=== PATIENT | female | born 1995 | race Asian ===

== ENCOUNTER 2017-05-04 16:15 | Emergency (ER) | payer OTHER ==
[2017-05-04 16:27] VITALS: BP 112/64
--- NOTE | 2017-05-04 16:47 | XRAY Preliminary Report ---
Exam: XR Chest 2 View PA/LAT IMPRESSION: No acute intrathoracic plain film abnormality. [facility] SITE ID: [id number]
--- NOTE | 2017-05-04 16:50 | XRAY Report ---
EXAM: CHEST RADIOGRAPHY EXAM DATE: 05/04/2017 04:40 PM. CLINICAL HISTORY: Productive cough x 2 weeks. COMPARISON: None. TECHNIQUE: 2 views. FINDINGS: Lungs/Pleura: No focal opacities evident. No pleural effusion. No pneumothorax. Normal volumes. Mediastinum: Heart and mediastinal contours are unremarkable. Other: None. IMPRESSION: No acute intrathoracic plain film abnormality. [facility] Referring Provider Line: [phone] SITE ID: [id number]
[2017-05-04] MEDS ORDERED: DEXAMETHASONE 10 MG/ML VIAL PO STA (17:09)
--- NOTE | 2017-05-04 17:10 | ED Physician Documentation ---
History of Present Illness - Stated complaint Stated Complaint: COUGH/DIFFICULT BREATHING - Chief complaint Chief Complaint: Resp - History obtained from History obtained from: Patient - History of Present Illness Timing: How many weeks ago (2) Pain level max: 0 Pain level now: 0 - Additonal information Additional information: Patient is a 22-year-old female who has been coughing for the past 2 weeks. States had intermittent subjective fevers the first 2-3 days, this has since resolved. Brings up a small amount of sputum occasionally. Does not smoke. Is concerned she may have pneumonia. No recent travel. No recent antibiotics. No his history of lung disease. States that occasionally she feels like it is hard to breathe when she lies down at night and starts to cough. Review of Systems Ten Systems: 10 systems reviewed and negative Constitutional: denies: Fever, Chills Nose: reports: Rhinorrhea / runny nose, Congestion Cardiac: denies: Chest pain / pressure Respiratory: reports: Cough, Wheezing GI: denies: Abdominal Pain, Nausea, Vomiting, Diarrhea Skin: denies: Rash Musculoskeletal: denies: Neck pain, Back pain Neurologic: denies: Headache PD PAST MEDICAL HISTORY - Past Medical History Past Medical History: No - Past Surgical History Past Surgical History: No - Present Medications Home Medications: Ambulatory Orders Medication Instructions Recorded Confirmed Benzonatate [Tessalon Perle] 100 - 200 mg PO TID PRN #30 capsule 05/04/17 Cetirizine HCl/Pseudoephedrine 1 each PO BID PRN #30 tab.er.12h 05/04/17 [Zyrtec-D Tablet] - Allergies Allergies/Adverse Reactions: Allergies Allergy/AdvReac Type Severity Reaction Status Date / Time No Known Drug Allergies Allergy Verified 05/04/17 16:26 - Social History Does the pt smoke?: No Smoking Status: Never smoker Does the pt drink ETOH?: No Does the pt have substance abuse?: No PD ED PE NORMAL - Vitals Vital signs reviewed: Yes - General General: Alert and oriented X 3, No acute distress - HEENT HEENT: Ears normal, Moist mucous membranes, Pharynx benign - Neck Neck: Supple, no meningeal sign, No adenopathy - Cardiac Cardiac: RRR, Strong equal pulses - Respiratory Respiratory: No respiratory distress, Clear bilaterally - Abdomen Abdomen: Soft, Non tender - Derm Derm: Warm and dry - Neuro Neuro: Alert and oriented X 3 - Psych Psych: Normal mood, Normal affect Results - Vitals Vitals: Vital Signs - 24 hr 05/04/17 16:23 Temperature 37.0 C Heart Rate 77 Respiratory 16 Rate Blood Pressure 112/64 O2 Saturation 98 Oxygen O2 Source Room air - Rads (name of study) cxr Radiology: Prelim report reviewed, EMP read contemporaneously, See rad report ( normal) PD MEDICAL DECISION MAKING - ED course Complexity details: reviewed results, re-evaluated patient, considered differential, d/w patient ED course: Patient is a 22-year-old female who appears to have a viral upper respiratory infection. She is well-appearing, nontoxic. Afebrile. No hypoxia. No pneumonia on chest x-ray. We will continue supportive care and follow-up with her doctor. Patient counseled regarding signs and symptoms for which I believe and urgent re-evaluation would be necessary. Patient with good understanding of and agreement to plan and is comfortable going home at this time This document was made in part using voice recognition software. While efforts are made to proofread this document, sound alike and grammatical errors may occur. Departure - Departure Disposition: 01 Home, Self Care Clinical Impression: Upper respiratory tract infection Qualifiers: URI type: unspecified viral URI Qualified Code(s): J06.9 - Acute upper respiratory infection, unspecified Condition: Good Instructions: ED URI Viral Follow-Up: your,doctor in 1 week [Other] Prescriptions: Benzonatate [Tessalon Perle] 100 - 200 mg PO TID PRN #30 capsule PRN Reason: Cough Cetirizine HCl/Pseudoephedrine [Zyrtec-D Tablet] 1 each PO BID PRN #30 tab.er.12h PRN Reason: Nasal Congestion Comments: Return if you worsen or develop fevers. This should improve over the next week or 2. Drink plenty of fluids at home. Discharge Date/Time: 05/04/17 17:21
[2017-05-04] MEDS ORDERED: DEXAMETHASONE 10 MG/ML VIAL ONE (17:16)
== END 2017-05-04 17:21 | disposition home or self-care (01) ==
LOC: ED 16:15
DX: J06.9 Acute upper respiratory infection, unspecified (principal)
CPT/HCPCS: 71020; 99283

== ENCOUNTER 2017-08-26 14:12 | Emergency (ER) | payer OTHER ==
[2017-08-26] MEDS ORDERED: AMOX/CLAV 875 MG/125 MG TABLET PO STA (16:46)
--- NOTE | 2017-08-26 16:48 | ED Physician Documentation ---
History of Present Illness - Stated complaint Stated Complaint: R HAND LAC - Chief complaint Chief Complaint: Laceration - History obtained from History obtained from: Patient - History of Present Illness Timing: Today, How many hours ago (2) Pain level max: 8 Pain level now: 6 Improved by: rest Worsened by: movement - Additonal information Additional information: Patient is a 22-year-old female presents to the emergency department after her 2 dogs got in a fight and she broke them up, 1 of them bit her in the right hand. Tetanus is up-to-date. Review of Systems Constitutional: denies: Fever, Chills GI: denies: Nausea, Vomiting, Diarrhea Skin: denies: Rash Musculoskeletal: denies: Neck pain, Back pain Neurologic: denies: Headache PD PAST MEDICAL HISTORY - Past Medical History Past Medical History: No - Past Surgical History Past Surgical History: No - Present Medications Home Medications: Ambulatory Orders Medication Instructions Recorded Confirmed Benzonatate [Tessalon Perle] 100 - 200 mg PO TID PRN #30 capsule 05/04/17 Cetirizine HCl/Pseudoephedrine 1 each PO BID PRN #30 tab.er.12h 05/04/17 [Zyrtec-D Tablet] Amox/Clav 875/125 [Augmentin] 1 each PO Q12H #20 tablet 08/26/17 Ibuprofen [Motrin] 800 mg PO Q8H PRN #30 tablet 08/26/17 - Allergies Allergies/Adverse Reactions: Allergies Allergy/AdvReac Type Severity Reaction Status Date / Time No Known Drug Allergies Allergy Verified 05/04/17 16:26 - Social History Does the pt smoke?: No Smoking Status: Never smoker Does the pt drink ETOH?: No Does the pt have substance abuse?: No - Immunizations Immunizations are current?: Yes Immunizations: TDAP current <10years PD ED PE NORMAL - Vitals Vital signs reviewed: Yes - General General: Alert and oriented X 3, No acute distress - HEENT HEENT: Moist mucous membranes - Neck Neck: Supple, no meningeal sign - Cardiac Cardiac: RRR - Respiratory Respiratory: No respiratory distress, Clear bilaterally - Derm Derm: Warm and dry - Extremities Extremities: Other (R hand - abrasions and puncture wounds to the dorsum of the hand and pain. FROM in all digits, but pain and swelling along the dorsum of the hand 2-3rd digits.) - Neuro Neuro: Alert and oriented X 3 Results - Vitals Vitals: Vital Signs - 24 hr 08/26/17 08/26/17 14:21 17:50 Temperature 36.5 C Heart Rate 88 77 Respiratory 18 14 Rate Blood Pressure 114/69 125/78 O2 Saturation 98 100 Oxygen O2 Source Room air - Rads (name of study) R hand xray Radiology: Prelim report reviewed, EMP read contemporaneously, See rad report ( normal) PD MEDICAL DECISION MAKING - ED course Complexity details: reviewed results, re-evaluated patient, considered differential, d/w patient ED course: Patient is a 22-year-old female who presents to the emergency department with a right hand injury after a dog bite. Wounds are not suturable. Cleansed and bandaged in the emergency department. Tdap given. Placed in a fiberglass splint for comfort. Negative x-rays. Warnings of infection and instructions on wound care given at bedside. Also counseled on how to minimize scarring. Patient counseled regarding signs and symptoms for which I believe and urgent re -evaluation would be necessary. Patient with good understanding of and agreement to plan and is comfortable going home at this time This document was made in part using voice recognition software. While efforts are made to proofread this document, sound alike and grammatical errors may occur. Departure - Departure Disposition: 01 Home, Self Care Clinical Impression: Dog bite Qualifiers: Encounter type: initial encounter Qualified Code(s): W54.0XXA - Bitten by dog, initial encounter Condition: Good Instructions: ED Bite Dog Follow-Up: your,doctor in 4 days for wound check [Other] Prescriptions: Amox/Clav 875/125 [Augmentin] 1 each PO Q12H #20 tablet Ibuprofen [Motrin] 800 mg PO Q8H PRN #30 tablet PRN Reason: PAIN &/OR FEVER Comments: Take all antibiotics until gone. Return if you worsen including redness, swelling or drainage from the wound. Discharge Date/Time: 08/26/17 18:00
[2017-08-26] MEDS: HYDROcod/ACETAM 5/325 MG TABLET PO STA ×2 (17:02→17:12)
--- NOTE | 2017-08-26 17:34 | XRAY Report ---
EXAM: RIGHT HAND RADIOGRAPHY EXAM DATE: 08/26/2017 05:18 PM. CLINICAL HISTORY: R hand dog bite. COMPARISON: None. TECHNIQUE: 3 views. FINDINGS: Bones: No fracture or focal bony lesion. Joints: No evidence of dislocation. Soft Tissues: There is mild mid hand soft tissue swelling and a small amount of subcutaneous air. No evidence of radiopaque foreign body. IMPRESSION: No evidence of fracture or radiopaque foreign body. [facility] Referring Provider Line: [phone] SITE ID: [id number]
[2017-08-26] MEDS ORDERED: BACITRACIN OINT TOP ONE (17:42)
[2017-08-26] MEDS ORDERED: TETANUS/DIPHTHERIA/PERTUSSIS 0.5 ML SYRINGE IM ONE (17:48)
[2017-08-26 17:50] VITALS: BP 125/78
== END 2017-08-26 18:00 | disposition home or self-care (01) ==
LOC: ED 14:12
DX: S61.431A Puncture wound without foreign body of right hand, initial encounter (principal); W54.0XXA Bitten by dog, initial encounter; Y92.019 Unspecified place in single-family (private) house as the place of occurrence of the external cause; Z23 Encounter for immunization
CPT/HCPCS: 73130; 90471; 90715; 99283; A9270

== ENCOUNTER 2018-03-25 08:50 | Emergency (ER) | payer OTHER ==
[2018-03-25 09:02] VITALS: BP 108/76
--- NOTE | 2018-03-25 09:07 | ED Physician Documentation ---
PD HPI SKIN - Stated complaint Stated Complaint: ALLERGIC REACTION - Chief complaint Chief Complaint: Wound - History obtained from History obtained from: Patient - History of Present Illness Timing - onset: Last night Timing - details: Gradual onset, Still present Location: Face, Neck, Back Quality / character: Itchy, Burning, Discolored (red) Improved by: Benadryl (last night) Associated symptoms: No: Fever, Dyspnea, N/V/D Contributing factors: No: Exposed to medication, Exposed to food, Exposed to soap / lotion, Insect bite /sting, Recent illness Similar symptoms before: Has not had sx before Recently seen: Not recently seen Review of Systems Constitutional: denies: Fever, Chills, Myalgias Nose: denies: Rhinorrhea / runny nose, Congestion Throat: denies: Sore throat Cardiac: denies: Chest pain / pressure, Palpitations Respiratory: denies: Dyspnea, Cough GI: denies: Nausea, Vomiting, Diarrhea : denies: Dysuria, Frequency Skin: reports: Rash Neurologic: denies: Generalized weakness, Altered mental status, Headache PD PAST MEDICAL HISTORY - Past Medical History Past Medical History: No - Past Surgical History Past Surgical History: No - Present Medications Home Medications: Ambulatory Orders Medication Instructions Recorded Confirmed Cetirizine [ZyrTEC] 10 mg PO DAILY #15 tablet 03/25/18 Dexamethasone [Decadron] 4 mg PO DAILY #5 tablet 03/25/18 diphenhydrAMINE [Benadryl] 03/25/18 - Allergies Allergies/Adverse Reactions: Allergies Allergy/AdvReac Type Severity Reaction Status Date / Time No Known Drug Allergies Allergy Verified 03/25/18 09:01 - Social History Does the pt smoke?: No Smoking Status: Never smoker Does the pt drink ETOH?: No Does the pt have substance abuse?: No - Immunizations Immunizations are current?: Yes Immunizations: TDAP current <10years - POLST Patient has POLST: No PD ED PE NORMAL - Vitals Vital signs reviewed: Yes - General General: Alert and oriented X 3, No acute distress (but is uncomfortable with the rash burning. ), Well developed/nourished - HEENT HEENT: Moist mucous membranes, Pharynx benign (no swelling of tongue nor throat. Normal voice and respirations. ) - Neck Neck: Supple, no meningeal sign, No adenopathy - Cardiac Cardiac: RRR, No murmur - Respiratory Respiratory: Clear bilaterally - Abdomen Abdomen: Soft, Non tender - Derm Derm: Other (distinct red, raised rash on face and neck, mild on shoulders and back and arms. None on hands. Nonvesicular, raised red c/w hives.) - Extremities Extremities: Normal ROM s pain - Neuro Neuro: Alert and oriented X 3, No motor deficit, Normal speech Results - Vitals Vitals: Oxygen O2 Source Room air PD MEDICAL DECISION MAKING - ED course Complexity details: considered differential (rash very much face and neck but some on back and arms. Consider sun sensitization versus contact dermatitis, but not a reason for either, so presume general allergic reaction. No new meds/ foods/lotions/etc. She is on depo shot not oral OCPs. No NSAID use. ), d/w patient - Sepsis Event Vital Signs: Oxygen O2 Source Room air Departure - Departure Disposition: 01 Home, Self Care Clinical Impression: Urticaria, acute Condition: Stable Record reviewed to determine appropriate education?: Yes Instructions: ED Allergic Reaction General [facility] Prescriptions: Cetirizine [ZyrTEC] 10 mg PO DAILY #15 tablet Dexamethasone [Decadron] 4 mg PO DAILY #5 tablet Comments: Use Benadryl 1-2 tablets every 6-8 hours as needed for itchiness and hives. Take a daily long-acting antihistamine as well, cetirizine daily for 1-2 weeks. Decadron steroid daily for the next 5 days. Recheck if not improving over the next couple of days. Avoid driving and has it does work if using the Benadryl while you feel sleepy. Typically this type of reaction will go away over a couple of days and not return. If you have recurrent episodes or its persistent and not improving, then there may be a need for allergy testing or such. Forms: Activity restrictions Discharge Date/Time: 03/25/18 09:52
[2018-03-25] MEDS ORDERED: DEXAMETHASONE 10 MG/ML VIAL PO STA (09:32)
[2018-03-25] MEDS ORDERED: FAMOTIDINE 20 MG TABLET PO STA (09:32)
[2018-03-25] MEDS ORDERED: CETIRIZINE 10 MG TABLET PO STA (09:32)
[2018-03-25] MEDS ORDERED: CHERRY SYRUP 10 ML UDC PO ONE (09:45)
== END 2018-03-25 09:52 | disposition home or self-care (01) ==
LOC: ED 08:50
DX: L50.9 Urticaria, unspecified (principal)
CPT/HCPCS: 99283; A9270

== ENCOUNTER 2018-05-27 09:57 | Emergency (ER) | payer OTHER ==
--- NOTE | 2018-05-27 11:22 | XRAY Report ---
Reason: Trauma Procedure Date: 05/27/2018 Accession Number: [id number] / [id number] Procedure: XR - Tib/Fib LT CPT Code: FULL RESULT: EXAM: LEFT TIBIA/FIBULA RADIOGRAPHY EXAM DATE: 05/27/2018 10:57 AM. CLINICAL HISTORY: Trauma. Pain lateral tibia/fibula. COMPARISON: None. TECHNIQUE: 2 views. FINDINGS: Bones: Normal. No fracture or bone lesion. Joints: The visualized knee and ankle joints are normal. No effusions. Soft Tissues: Normal. No soft tissue swelling. IMPRESSION: Normal tibia/fibula radiography. [facility]
[2018-05-27] MEDS ORDERED: IBUPROFEN 600 MG TABLET PO STA (12:14)
[2018-05-27] MEDS ORDERED: ACETAMINOPHEN 325 MG TABLET PO STA (12:14)
--- NOTE | 2018-05-27 12:21 | ED Physician Documentation ---
PD HPI LOWER EXT INJURY - Stated complaint Stated Complaint: LT LEG PX - Chief complaint Chief Complaint: General - History obtained from History obtained from: Patient - History of Present Illness PD HPI LOW EXT INJURY LOCATION: Left, Lower leg (lateral aspect) Type of injury: Blunt / blow (caught in car door that was closing.) Where injury occurred: Home Timing - onset: Last night Timing - details: Abrupt onset, Still present Improved by: Rest Worsened by: Moving, Palpating Associated symptoms: Swelling, Discolored (bruising color laterally). No: Weakness, Numbness Similar symptoms before: Has not had sx before Recently seen: Not recently seen Review of Systems GI: denies: Nausea, Vomiting Skin: reports: Abrasion (s). denies: Laceration (s) Musculoskeletal: denies: Neck pain, Back pain Neurologic: denies: Focal weakness, Numbness PD PAST MEDICAL HISTORY - Past Medical History Cardiovascular: None Musculoskeletal: None Derm: None - Past Surgical History Past Surgical History: No - Present Medications Home Medications: Ambulatory Orders Medication Instructions Recorded Confirmed Naproxen [Naprosyn] 500 mg PO BID PRN #20 tablet 05/27/18 - Allergies Allergies/Adverse Reactions: Allergies Allergy/AdvReac Type Severity Reaction Status Date / Time No Known Drug Allergies Allergy Verified 05/27/18 10:44 - Social History Does the pt smoke?: No Smoking Status: Never smoker Does the pt drink ETOH?: No Does the pt have substance abuse?: No - Immunizations Immunizations are current?: Yes Immunizations: TDAP current <10years - POLST Patient has POLST: No PD ED PE NORMAL - Vitals Vital signs reviewed: Yes - General General: Alert and oriented X 3, No acute distress, Well developed/nourished - Extremities Extremities: No edema, Other (left lateral lower leg with bruising and tenderness, some swelling. Knee ligaments firm and intact in stress testing. no knee effusion. Tenderness and bruising mainly mid lateral fibular area down to upper ankle.) Results - Vitals Vitals: Oxygen O2 Source Room air - Rads (name of study) left lower leg (tib/fib) Radiology: Prelim report reviewed, EMP read contemporaneously PD MEDICAL DECISION MAKING - ED course Complexity details: reviewed results, re-evaluated patient (painful with walking and has some ligament area abrasion on lateral malleolus. ), considered differential (not twisting injury to ligaments lower likelihood. ) Departure - Departure Disposition: 01 Home, Self Care Clinical Impression: Contusion, lower leg Qualifiers: Encounter type: initial encounter Laterality: left Qualified Code(s): S80.12XA - Contusion of left lower leg, initial encounter Condition: Stable Record reviewed to determine appropriate education?: Yes Instructions: ED Contusion Lower Ext Follow-Up: [facility] Gloria [Provider Group] Prescriptions: Naproxen [Naprosyn] 500 mg PO BID PRN #20 tablet PRN Reason: Pain Comments: Limited weightbearing and walking over the next few days to reduce swelling and pain. Crutches as needed for partial weightbearing. Addy wrap locally. Naproxen twice daily for the next 7-10 days and add Tylenol if needed. Follow- up with your primary care in the next few days regarding any further limitations of work and activity. This may take a week or 2 to fully improve. Forms: Activity restrictions Discharge Date/Time: 05/27/18 12:50
[2018-05-27 12:50] VITALS: BP 108/58
== END 2018-05-27 12:50 | disposition home or self-care (01) ==
LOC: ED 09:57
DX: S80.12XA Contusion of left lower leg, initial encounter (principal); V48.4XXA Person boarding or alighting a car injured in noncollision transport accident, initial encounter; Y92.009 Unspecified place in unspecified non-institutional (private) residence as the place of occurrence of the external cause
CPT/HCPCS: 73590; 99283; A9270

== ENCOUNTER 2018-10-16 20:22 | Emergency (ER) | payer OTHER ==
[2018-10-16 20:30] VITALS: BP 119/71
[2018-10-16] MEDS ORDERED: BENZONATATE 100 MG CAPSULE PO STA (20:50)
[2018-10-16] MEDS ORDERED: ALBUTEROL NEB 2.5 MG/3 ML INH STA (20:50)
--- NOTE | 2018-10-16 21:06 | ED Physician Documentation ---
PD HPI URI - Stated complaint Stated Complaint: COUGH - Chief complaint Chief Complaint: Resp - History obtained from History obtained from: Patient - History of Present Illness Timing - onset: Yesterday Timing duration: Days (2) Timing details: Gradual onset Pain level max: 0 Pain level now: 0 Associated symptoms: Nasal congestion, Rhinorrhea, Dry cough, Dyspnea (wheezing). No: Fever, Chills Contributing factors: Sick contact, Other (has used inhalers). 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 : None HEENT: None Psych: None Musculoskeletal: None Derm: None - Past Surgical History Past Surgical History: No - Present Medications Home Medications: Ambulatory Orders Medication Instructions Recorded Confirmed Albuterol Sulf [Ventolin Hfa 1 - 2 puffs INH Q4HR PRN #1 inhaler 10/16/18 Inhaler] Benzonatate [Tessalon Perle] 100 - 200 mg PO TID PRN #30 capsule 10/16/18 - Allergies Allergies/Adverse Reactions: Allergies Allergy/AdvReac Type Severity Reaction Status Date / Time No Known Drug Allergies Allergy Verified 10/16/18 20:30 - Social History Does the pt smoke?: No Smoking Status: Never smoker Does the pt drink ETOH?: No Does the pt have substance abuse?: No - Immunizations Immunizations are current?: Yes Immunizations: TDAP current <10years - POLST Patient has POLST: No PD ED PE NORMAL - Vitals Vital signs reviewed: Yes - General General: Alert and oriented X 3, No acute distress - HEENT HEENT: PERRL, Ears normal, Moist mucous membranes, Pharynx benign - Neck Neck: Supple, no meningeal sign - Cardiac Cardiac: RRR - Respiratory Respiratory: No respiratory distress, Other (wheezing B) - Abdomen Abdomen: Soft, Non tender, Non distended - Derm Derm: Warm and dry, No rash - Extremities Extremities: No edema - Neuro Neuro: Alert and oriented X 3 Results - Vitals Vitals: Vital Signs - 24 hr 10/16/18 10/16/18 20:27 21:13 Temperature 37.1 C Heart Rate 87 92 Respiratory 16 18 Rate Blood Pressure 119/71 O2 Saturation 99 Oxygen O2 Source Room air - Labs Labs: Laboratory Tests 10/16/18 21:03 Ur Specific [place] 1.010 Urine HCG, Qual NEGATIVE PD MEDICAL DECISION MAKING - ED course Complexity details: reviewed results, re-evaluated patient, considered differential, d/w patient ED course: 23-year-old female, well-appearing, nontoxic. Feels better after nebulizer treatment. Will continue supportive care and follow-up with her doctor. No evidence of pneumonia, sepsis. Patient counseled regarding signs and symptoms for which I believe and urgent re-evaluation would be necessary. Patient with good understanding of and agreement to plan and is comfortable going home at this time This document was made in part using voice recognition software. While efforts are made to proofread this document, sound alike and grammatical errors may occur. Departure - Departure Disposition: 01 Home, Self Care Clinical Impression: Upper respiratory tract infection Qualifiers: URI type: unspecified URI Qualified Code(s): J06.9 - Acute upper respiratory infection, unspecified Condition: Good Instructions: ED URI Viral W Wheezing Follow-Up: your,doctor in 1week [Other] Prescriptions: Albuterol Sulf [Ventolin Hfa Inhaler] 1 - 2 puffs INH Q4HR PRN #1 inhaler PRN Reason: Shortness Of Air/Wheezing Benzonatate [Tessalon Perle] 100 - 200 mg PO TID PRN #30 capsule PRN Reason: Cough Comments: Use the inhaler as prescribed. This will likely last 7-10 days. Return if you worsen. Discharge Date/Time: 10/16/18 21:38
[2018-10-16 21:16] LABS: HCG UR QUAL NEGATIVE
== END 2018-10-16 21:38 | disposition home or self-care (01) ==
LOC: ED 20:22
DX: J06.9 Acute upper respiratory infection, unspecified (principal)
CPT/HCPCS: 81025; 94640; 94664; 99283; A9270

== ENCOUNTER 2018-11-24 22:06 | Emergency (ER) | payer OTHER ==
[2018-11-24] MEDS ORDERED: SODIUM CHLORIDE 0.9% 1,000 ML IV ONE (22:23)
--- NOTE | 2018-11-24 22:24 | ED Physician Documentation ---
History of Present Illness - Stated complaint Stated Complaint: FEMALE /8WK OB - Chief complaint Chief Complaint: Abd Pain - History obtained from History obtained from: Patient - Additonal information Additional information: Patient is a previously healthy 23-year-old female A2, currently about 8 weeks , presenting with lower abdominal pain, cramping, and vaginal bleeding with clots over the past 1 day.Patient went to her CARD DECORATOR last week for confirmatory ultrasound, which was equivocal. Patient denies fever, nausea, vomiting, urinary changes, or stool changes associated with her vaginal bleeding and cramping. Patient has had to use about 4-5 pads today to control bleeding. Patient's last menstrual period 09/15/2018. Blood type unknown. Patient compliant with vitamins. No other particular improving or worsening factors noted to her symptoms. Review of Systems Constitutional: denies: Fever GI: reports: Abdominal Pain. 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: None : None HEENT: None Psych: None Musculoskeletal: None Derm: None - Past Surgical History Past Surgical History: No - Present Medications Home Medications: Ambulatory Orders Medication Instructions Recorded Confirmed Benzonatate [Tessalon Perle] 100 - 200 mg PO TID PRN #30 capsule 10/16/18 RX: Albuterol Sulf [Ventolin Hfa 1 - 2 puffs INH Q4HR PRN #1 inhaler 10/16/18 Inhaler] Cephalexin [Keflex] 500 mg PO BID #14 capsule 11/25/18 - Allergies Allergies/Adverse Reactions: Allergies Allergy/AdvReac Type Severity Reaction Status Date / Time No Known Drug Allergies Allergy Verified 10/16/18 20:30 - Social History Does the pt smoke?: No Smoking Status: Never smoker Does the pt drink ETOH?: No Does the pt have substance abuse?: No - Immunizations Immunizations are current?: Yes Immunizations: TDAP current <10years - POLST Patient has POLST: No PD ED PE NORMAL - General General: Alert and oriented X 3, No acute distress, Well developed/nourished - HEENT HEENT: Atraumatic, Moist mucous membranes - Cardiac Cardiac: RRR, No murmur - Respiratory Respiratory: No respiratory distress, Clear bilaterally - Abdomen Abdomen: Normal bowel sounds, Soft, Non distended. No: Non tender (Moderate suprapubic tenderness. No guarding or rebound.) - Derm Derm: Normal color, Warm and dry, No rash - Extremities Extremities: No deformity, No tenderness to palpate - Neuro Neuro: Alert and oriented X 3, No motor deficit, No sensory deficit - Psych Psych: Normal mood, Normal affect Results - Vitals Vitals: Vital Signs - 24 hr 11/24/18 11/25/18 22:10 00:55 Temperature 36.9 C Heart Rate 88 76 Respiratory 18 15 Rate Blood Pressure 119/74 119/71 O2 Saturation 99 100 Oxygen O2 Source Room air - Labs Labs: Laboratory Tests 11/24/18 11/24/18 11/24/18 22:28 22:28 22:28 WBC 13.5 H RBC 4.85 Hgb 12.5 Hct 38.5 MCV 79.4 L MCH 25.8 L MCHC 32.5 RDW 15.9 H Plt Count 300 MPV 7.3 L Neut # (Auto) 10.6 H Lymph # (Auto) 1.8 [place] # (Auto) 0.9 Eos # (Auto) 0.1 Baso # (Auto) 0.1 Absolute Nucleated RBC 0.01 Nucleated RBC % 0.1 Sodium 137 Potassium 3.7 Chloride 103 Carbon Dioxide 22 Anion Gap 12.0 BUN 10 Creatinine 0.5 Estimated GFR (MDRD) 150 Glucose 105 H Calcium 9.2 Total Bilirubin 0.4 AST 20 ALT 20 Alkaline Phosphatase 96 Total Protein 8.0 Albumin 4.3 Globulin 3.7 Albumin/Globulin Ratio 1.2 Lipase 38 HCG, Quant Urine Color Urine Clarity Urine pH Ur Specific [place] Urine Protein Urine Glucose (UA) Urine Ketones Urine Occult Blood Urine Nitrite Urine Bilirubin Urine Urobilinogen Ur Leukocyte Esterase Urine RBC Urine WBC Ur Squamous Epith Cells Urine Bacteria Ur Microscopic Review Urine Culture Comments Blood Type B POSITIVE Antibody Screen NEGATIVE 11/24/18 11/24/18 22:30 22:30 WBC RBC Hgb Hct MCV MCH MCHC RDW Plt Count MPV Neut # (Auto) Lymph # (Auto) [place] # (Auto) Eos # (Auto) Baso # (Auto) Absolute Nucleated RBC Nucleated RBC % Sodium Potassium Chloride Carbon Dioxide Anion Gap BUN Creatinine Estimated GFR (MDRD) Glucose Calcium Total Bilirubin AST ALT Alkaline Phosphatase Total Protein Albumin Globulin Albumin/Globulin Ratio Lipase HCG, Quant 6001.00 Urine Color BROWN Urine Clarity CLOUDY Urine pH 5.5 Ur Specific [place] >=1.030 H Urine Protein TRACE Urine Glucose (UA) NEGATIVE Urine Ketones NEGATIVE Urine Occult Blood LARGE H Urine Nitrite NEGATIVE Urine Bilirubin NEGATIVE Urine Urobilinogen 0.2 (NORMAL) Ur Leukocyte Esterase NEGATIVE Urine RBC TNTC H Urine WBC 6-10 H Ur Squamous Epith Cells NONE SEEN Urine Bacteria Few Ur Microscopic Review INDICATED Urine Culture Comments INDICATED Blood Type Antibody Screen PD MEDICAL DECISION MAKING - ED course Complexity details: reviewed old records, reviewed results, re-evaluated patient, considered differential, d/w patient, d/w family ED course: Most concerning for threatened , incomplete , placenta previa or abruption, first trimester bleeding and given patient's known proximately 8-week , recent equivocal confirmatory ultrasound, new onset vaginal bleeding and cramping, as well as physical exam findings. Vital signs within normal limits upon arrival. Patient comfortable on exam except for mild suprapubic tenderness. IV started and patient received fluid, but did not feel she required medications at this time. Blood work and urinalysis also ordered, as well as ultrasound. Lab work indicated presence of mild leukocytosis, which could be contributed to . No significant decrease in H&H to indicate significant blood loss or anemia. Remainder of labs relatively unremarkable. Urinalysis showed presence of blood, as well as WBCs and bacteria. Given patient's , plan to treat for possible UTI with antibiotic. Blood typing returned as B positive and therefore, patient will not require RhoGam. USReturned without evidence of an intrauterine or extrauterine . No obvious retained products of conception, but thickened endometrium present. Patient also requested something for abdominal cramping and given concern for , offered Tylenol which she accepted. Discussed at length the results and recommendations with patient and her significant other, including close CARD DECORATOR follow-up later today with repeat ultrasound, as well as other supportive cares, strict return precautions.Patient and significant other are comfortable with this plan. Departure - Departure Disposition: 01 Home, Self Care Clinical Impression: First trimester bleeding Condition: Fair Instructions: Bleeding Early Preg Follow-Up: your,CARD DECORATOR [Other] - Tomorrow Prescriptions: Cephalexin [Keflex] 500 mg PO BID #14 capsule Comments: Please continue taking vitamins. Please only take Tylenol as needed for pain control. Please contact your CARD DECORATOR later this morning to alert them to your abdominal cramping, vaginal bleeding, and ED visit. Please keep CARD DECORATOR follow-up on Sunday and request possibly moving up appointment. Also request repeat ultrasound during this appointment to further evaluate for possible miscarriage. In the interim, please return to the ED immediately if experience worsening symptoms or other concerns. Please take antibiotic as prescribed for possible urinary tract infection. Recommend taking with food to avoid upset stomach. Discharge Date/Time: 11/25/18 01:45
[2018-11-24 22:55] LABS: BASOPHILS # (AUTO) 0.1 10^3/uL (0.0-0.1); BASOPHILS % (AUTO) 0.5 %; EOSINOPHILS # (AUTO) 0.1 10^3/uL (0.0-0.7); EOSINOPHILS % (AUTO) 0.9 %; HGB - HEMOGLOBIN 12.5 g/dL (12.0-16.0); LYMPHOCYTES # (AUTO) 1.8 10^3/uL (1.5-3.5); LYMPHOCYTES % (AUTO) 13.6 %; MEAN CORPUSCULAR HEMOGLOBIN 25.8 pg (27.0-31.0); MEAN CORPUSCULAR HGB CONC 32.5 g/dL (32.0-36.0); MEAN CORPUSCULAR VOLUME 79.4 fL (81.0-99.0); MEAN PLATELET VOLUME 7.3 fL (7.9-10.8); MONOCYTES # (AUTO) 0.9 10^3/uL (0.0-1.0); MONOCYTES % (AUTO) 6.7 %; NEUTROPHILS # (AUTO) 10.6 10^3/uL (1.5-6.6); NEUTROPHILS % (AUTO) 78.3 %; PLT - PLATELET COUNT 300 10^3/uL (130-450); RED BLOOD COUNT 4.85 10^6/uL (4.20-5.40); RED CELL DISTRIBUTION WIDTH 15.9 % (12.0-15.0); WHITE BLOOD COUNT 13.5 x10^3/uL (4.8-10.8)
[2018-11-24 22:56] LABS: GLUCOSE, URINE (UA) NEGATIVE (NEGATIVE); KETONES,URINE (UA) NEGATIVE (NEGATIVE); LEUKOCYTE ESTERASE, URINE NEGATIVE (NEGATIVE); NITRITE,URINE NEGATIVE (NEGATIVE); OCCULT BLOOD,URINE LARGE (NEGATIVE); PH,URINE 5.5 PH (5.0-7.5); PROTEIN,URINE TRACE mg/dL (NEGATIVE); UROBILINOGEN,URINE 0.2 (NORMAL) E.U./dL (NORMAL)
[2018-11-24 23:03] LABS: BILIRUBIN,URINE NEGATIVE (NEGATIVE); CLARITY,URINE CLOUDY (CLEAR); ICTOTEST,URINE NEGATIVE; RBC,URINE TNTC /HPF (0-5)
[2018-11-24 23:04] LABS: BACTERIA,URINE Few /HPF (None Seen); SQUAMOUS EPITHELIAL CELL,UR NONE SEEN (<= Few)
[2018-11-24 23:07] LABS: ALBUMIN 4.3 g/dL (3.2-5.5); ALBUMIN/GLOBULIN RATIO 1.2 (1.0-2.2); BILIRUBIN,TOTAL 0.4 mg/dL (0.2-1.0); CALCIUM 9.2 mg/dL (8.5-10.3); CREATININE 0.5 mg/dL (0.4-1.0)
[2018-11-25 00:55] VITALS: BP 119/71
--- NOTE | 2018-11-25 01:14 | Ultrasound Report ---
Reason: 8 weeks, cramping and bleeding Procedure Date: 11/25/2018 Accession Number: [id number] / [id number] Procedure: US - OB First Trimester CPT Code: FULL RESULT: EXAM: FIRST TRIMESTER OBSTETRIC ULTRASOUND (Less than 11 weeks) EXAM DATE: 11/25/2018 12:30 AM. CLINICAL HISTORY: 8 weeks, cramping and bleeding. LMP: 09/15/2018. COMPARISONS: None. TECHNIQUE: Transabdominal and transvaginal ultrasound examination with static image documentation. CLINICAL DATES: EGA 10 weeks 0 days with RADHA 06/22/2019 based on LMP. ASSESSMENT: Gestational Sac: None visualized. MATERNAL STRUCTURES: Uterus: Anteverted. The endometrium is thickened, measuring 26 mm. No hypervascularity is identified to suggest retained products of conception.. Cervix: Closed. Right Ovary/Adnexa: The ovary measures 3.3 x 1.7 x 1.6 cm, volume 5 cc. 2 cm corpus luteum.. Left Ovary/Adnexa: The ovary measures 3.7 x 3.2 x 2.5 cm, volume 15 cc. The left ovary is dominated by 3.7 cm cyst. A thin rim of ovarian tissue is present. Free Fluid: None. Other: None. IMPRESSION: 1. Thickened endometrium, without evidence of retained products of conception. No evidence of an intrauterine or extrauterine gestation at this time. Recommend follow-up serial quantitative beta-hCG, and rescan as clinically indicated. RADIA
[2018-11-25] MEDS ORDERED: ACETAMINOPHEN 325 MG TABLET PO STA (01:15)
--- NOTE | 2018-11-25 01:15 | Ultrasound Report ---
Reason: bledding, cramping Procedure Date: 11/25/2018 Accession Number: [id number] / [id number] Procedure: US - OB Transvaginal CPT Code: FULL RESULT: EXAM: FIRST TRIMESTER OBSTETRIC ULTRASOUND (Less than 11 weeks) EXAM DATE: 11/25/2018 12:30 AM. CLINICAL HISTORY: 8 weeks, cramping and bleeding. LMP: 09/15/2018. COMPARISONS: None. TECHNIQUE: Transabdominal and transvaginal ultrasound examination with static image documentation. CLINICAL DATES: EGA 10 weeks 0 days with RADHA 06/22/2019 based on LMP. ASSESSMENT: Gestational Sac: None visualized. MATERNAL STRUCTURES: Uterus: Anteverted. The endometrium is thickened, measuring 26 mm. No hypervascularity is identified to suggest retained products of conception.. Cervix: Closed. Right Ovary/Adnexa: The ovary measures 3.3 x 1.7 x 1.6 cm, volume 5 cc. 2 cm corpus luteum.. Left Ovary/Adnexa: The ovary measures 3.7 x 3.2 x 2.5 cm, volume 15 cc. The left ovary is dominated by 3.7 cm cyst. A thin rim of ovarian tissue is present. Free Fluid: None. Other: None. IMPRESSION: 1. Thickened endometrium, without evidence of retained products of conception. No evidence of an intrauterine or extrauterine gestation at this time. Recommend follow-up serial quantitative beta-hCG, and rescan as clinically indicated.
== END 2018-11-25 01:45 | disposition home or self-care (01) ==
LOC: ED 22:06
DX: O20.9 Hemorrhage in early pregnancy, unspecified (principal); Z3A.08 8 weeks gestation of pregnancy
CPT/HCPCS: 36415; 76801; 76817; 80053; 81001; 83690; 84702; 85025; 86850; 86900; 86901; 87086; 96360; 99283; A9270; 81003